=== PATIENT | male | born 1945 | race Two or more races ===

== ENCOUNTER → 2017-08-01 | Outpatient (CLI) | payer OTHER | END | disposition home or self-care (01) | LOC: LAB 11-20 07:42 → MRI 10:00 | DX: M54.2 Cervicalgia (principal); M54.12 Radiculopathy, cervical region | CPT/HCPCS: 72141 ==

== ENCOUNTER 2018-09-03 11:31 | Outpatient (CLI) | payer OTHER | END 2018-09-03 11:35 | disposition home or self-care (01) | LOC: RAD 11:31 | DX: I11.9 Hypertensive heart disease without heart failure (principal); R06.02 Shortness of breath ==

== ENCOUNTER 2018-12-07 17:57 | Emergency (ER) | payer OTHER ==
[~2018-12-07] VITALS: Ht 185.4 cm; Wt 99.8 kg
[2018-12-07] MEDS ORDERED: ASA-EC81 MG (18:12)
[2018-12-07] MEDS ORDERED: LIPITOR20 MG (18:12)
[2018-12-07] MEDS ORDERED: COZAAR50 MG (18:13)
[2018-12-07] MEDS ORDERED: AMPICILLIN TRI500 MG (18:13)
[2018-12-07] MEDS ORDERED: METFORMIN HCL500 M1 (18:13)
== END 2018-12-07 20:28 | disposition home or self-care (01) ==
LOC: ER 17:57
DX: B34.9 Viral infection, unspecified (principal); D32.0 Benign neoplasm of cerebral meninges; R42 Dizziness and giddiness; J11.1 Influenza due to unidentified influenza virus with other respiratory manifestations

== ENCOUNTER 2018-12-09 19:40 | Emergency (ER) | payer OTHER ==
[~2018-12-09] VITALS: Ht 185.4 cm; Wt 99.8 kg
[~2018-12-09 19:40] MED LIST: AMPICILLIN TRI500 MG; ASA-EC81 MG; COZAAR50 MG; LIPITOR20 MG; METFORMIN HCL500 M1
[2018-12-09] MEDS ORDERED: MECLIZINE HCL12.5 MG (19:54)
== END 2018-12-09 23:51 | disposition home or self-care (01) ==
LOC: ER 19:40
DX: B34.9 Viral infection, unspecified (principal); R31.29 Other microscopic hematuria

== ENCOUNTER 2018-12-12 11:19 | Outpatient (CLI) | payer OTHER ==
[~2018-12-12 11:19] MED LIST changes: +MECLIZINE HCL12.5 MG
== END 2018-12-12 11:23 | disposition home or self-care (01) ==
LOC: MRI 11:19
DX: I63.30 Cerebral infarction due to thrombosis of unspecified cerebral artery (principal); G20 Parkinson's disease
CPT/HCPCS: 70551

== ENCOUNTER 2019-03-21 08:25 | Outpatient (CLI) | payer OTHER | END 2019-03-21 08:26 | disposition home or self-care (01) | LOC: RAD 08:25 | DX: Z98.41 Cataract extraction status, right eye (principal); H25.011 Cortical age-related cataract, right eye; R07.89 Other chest pain ==

== ENCOUNTER 2019-08-22 15:55 | Outpatient (CLI) | payer OTHER | END 2019-08-22 16:27 | disposition home or self-care (01) | LOC: RAD 15:55 | DX: H25.012 Cortical age-related cataract, left eye (principal); Z98.42 Cataract extraction status, left eye ==

== ENCOUNTER → 2020-01-06 | Outpatient (CLI) | payer OTHER | END | disposition home or self-care (01) | LOC: SONOGRAMA 14:10 → MAMO-SONO 14:45 | PROVIDERS: ATTEND Internal Medicine Geriatric Medicine | DX: E03.8 Other specified hypothyroidism (principal); E04.2 Nontoxic multinodular goiter ==

== ENCOUNTER 2020-06-01 07:30 | Outpatient (CLI) | payer OTHER | END 2020-06-01 07:56 | disposition home or self-care (01) | LOC: NUCLEAR 07:30 | PROVIDERS: ATTEND Internal Medicine Cardiovascular Disease | DX: R07.89 Other chest pain (principal) | CPT/HCPCS: 78452; 93017; A9500; J0153 ==

== ENCOUNTER 2021-01-06 07:16 | Outpatient (CLI) | payer OTHER | END 2021-01-06 07:25 | disposition home or self-care (01) | LOC: LAB 07:16 | PROVIDERS: ATTEND Internal Medicine Geriatric Medicine | DX: D50.8 Other iron deficiency anemias (principal); E03.8 Other specified hypothyroidism; E78.2 Mixed hyperlipidemia; I11.9 Hypertensive heart disease without heart failure; E56.8 Deficiency of other vitamins; N39.0 Urinary tract infection, site not specified; Z12.11 Encounter for screening for malignant neoplasm of colon; R19.5 Other fecal abnormalities; E55.9 Vitamin D deficiency, unspecified; E11.9 Type 2 diabetes mellitus without complications; R80.8 Other proteinuria ==

== ENCOUNTER 2022-04-08 07:39 | Outpatient (CLI) | payer OTHER | END 2022-04-08 07:40 | disposition home or self-care (01) | LOC: LAB 07:39 | PROVIDERS: ATTEND Internal Medicine Geriatric Medicine | DX: D69.6 Thrombocytopenia, unspecified (principal); N39.0 Urinary tract infection, site not specified; C61 Malignant neoplasm of prostate; D50.9 Iron deficiency anemia, unspecified; E03.9 Hypothyroidism, unspecified; E78.2 Mixed hyperlipidemia; I11.9 Hypertensive heart disease without heart failure; E56.8 Deficiency of other vitamins; Z12.11 Encounter for screening for malignant neoplasm of colon; R19.5 Other fecal abnormalities; E55.9 Vitamin D deficiency, unspecified; E11.9 Type 2 diabetes mellitus without complications ==

== ENCOUNTER 2022-06-14 06:52 | Outpatient (CLI) | payer OTHER | END 2022-06-14 07:06 | disposition home or self-care (01) | LOC: LAB 06:52 | PROVIDERS: ATTEND Internal Medicine Geriatric Medicine | DX: D50.9 Iron deficiency anemia, unspecified (principal); E03.9 Hypothyroidism, unspecified; E78.2 Mixed hyperlipidemia; I11.9 Hypertensive heart disease without heart failure; E56.8 Deficiency of other vitamins; N39.0 Urinary tract infection, site not specified; Z12.11 Encounter for screening for malignant neoplasm of colon; R19.5 Other fecal abnormalities; E55.9 Vitamin D deficiency, unspecified; N19 Unspecified kidney failure; E11.9 Type 2 diabetes mellitus without complications ==

== ENCOUNTER 2022-08-21 10:29 | Emergency (ER) | payer OTHER ==
[~2022-08-21] VITALS: Ht 185.4 cm; Wt 97.5 kg
== END 2022-08-21 15:50 | disposition home or self-care (01) ==
LOC: ER 10:29
DX: B34.9 Viral infection, unspecified (principal); Z20.822 Contact with and (suspected) exposure to COVID-19; E11.9 Type 2 diabetes mellitus without complications; Z79.84 Long term (current) use of oral hypoglycemic drugs; I10 Essential (primary) hypertension

== ENCOUNTER 2023-06-21 19:22 | Emergency (ER) | payer OTHER ==
[~2023-06-21] VITALS: Ht 182.9 cm; Wt 98.0 kg
[2023-06-21] MEDS ORDERED: JANUVIA100 MG (19:53)
[2023-06-21] MEDS ORDERED: FOLIC ACID0.8 M1 (19:54)
[2023-06-21] MEDS ORDERED: TOPROL XL50 M1 (19:54)
[2023-06-21] MEDS ORDERED: ATORVASTATIN CA20 MG (19:54)
[2023-06-21] MEDS ORDERED: NIFEDIPINE20 MG (19:54)
[2023-06-21 20:52] LABS: HEMATOCRIT 46.2 % (39.0-48.0); HEMOGLOBIN 15.8 g/dL (13-16.00); MEAN CELL VOLUME 93.6 fL (80.0-100.00); MEAN CORPUSCULAR HEMOGLOBIN 32.1 pg (27.00-32.0); MEAN CORPUSCULAR HGB CONC 34.3 g/dl (32.0-36.0); PLATELET COUNT 163 K/uL (150-450); RED BLOOD COUNT 4.93 M/uL (4.00-6.00)
[2023-06-21 21:22] LABS: BILIRUBIN TOTAL 0.7 mg/dL (0.3-1.2); CREATININE SERUM 1.15 mg/dL (0.70-1.30); GFR 61.83; GLOBULINA 3.8 G/DL (2.4-3.5); POTASSIUM 4.85 mEq/L (3.5-5.1); TOTAL PROTEIN 7.8 gm/dL (6.4-8.2)
[2023-06-21 21:24] LABS: PH,URINE 5.5 (5.0-8.0); URINE APPEARANCE Clear; URINE BILIRRUBIN Negative (NEGATIVE); URINE BLOOD Negative; URINE COLOR Yellow; URINE GLUCOSE Negative (NEGATIVE); URINE LEUKOCYTE Negative; URINE NITRATE Negative; URINE PROTEIN Negative (NEGATIVE)
[2023-06-21 21:26] LABS: URINE BACTERIA 20.1 uL (0.0-1933); URINE RBC 17.6 uL (0.0-20.8); URINE WBC 2.4 uL (0.0-23.2)
[2023-06-21 21:30] LABS: URINE EPITHELIAL CELLS 0.9 uL (0.0-38.8)
[2023-06-21] MEDS ORDERED: DOLOGEN CAPLET1 EACH PO (21:38)
== END 2023-06-21 22:20 | disposition home or self-care (01) ==
LOC: ER 19:22
PROVIDERS: General Practice
DX: B34.9 Viral infection, unspecified (principal); E11.9 Type 2 diabetes mellitus without complications; Z79.84 Long term (current) use of oral hypoglycemic drugs; I10 Essential (primary) hypertension; Z20.822 Contact with and (suspected) exposure to COVID-19
CPT/HCPCS: 36415; 93005; 96365; 96366; 99284; J7030

== ENCOUNTER 2024-10-30 12:16 | Outpatient (CLI) | payer OTHER ==
[~2024-10-30 12:16] MED LIST changes: +ATORVASTATIN CA20 MG; +DOLOGEN CAPLET1 EACH PO; +FOLIC ACID0.8 M1; +JANUVIA100 MG; +NIFEDIPINE20 MG; +TOPROL XL50 M1
== END 2024-10-30 12:23 | disposition home or self-care (01) ==
LOC: RAD 12:16
PROVIDERS: ATTEND Podiatrist Foot Surgery
DX: M20.11 Hallux valgus (acquired), right foot (principal); M20.12 Hallux valgus (acquired), left foot